=== PATIENT | male | born 1950 | race Caucasian/White ===

== ENCOUNTER → 2017-07-27 | Outpatient (CLI) | payer MEDICARE, OTHER ==
[~2017-07-27] MED LIST: CLO1 PO; FLU20 PO; FLUO-177 PO; ONDA4TAB SL; OXYC-869 PO
--- NOTE | 2017-07-27 16:28 | RADIOLOGY IMAGING REPORT ---
FACILITY: [facility] PATIENT NAME: Leonard Romo : 1950 MR: [id number] V: [id number] EXAM DATE: ORDERING PHYSICIAN: KORI FREED TECHNOLOGIST: Location: [facility] Patient: Leonard Romo : 1950 Visit/Account:[id number] Date of Sevice: 07/27/2017 Exam type: LUMBAR SPINE 2 OR 3 VIEW History: Low back pain, right lateral thigh pain Comparison: None. Findings: There is a 21 degree levoconvex scoliosis at the thoracolumbar junction. There is no evidence of acu te fractures or subluxations in the lumbar spine. There are marginal osteophytes seen from T10 throu gh L4 IMPRESSION: 1. Spondylotic changes of the thoracolumbar spine. If patient's pain continues MR is recommended. 21 degrees levoconvex scoliosis at the thoracolumbar junction Report Dictated By: Jenna Figueroa MD at 07/27/2017 4:15 PM Report E-Signed By: Jenna Figueroa MD at 07/27/2017 4:23 PM WSN:[email or web address]
== END ==
LOC: RAD 15:19
PROVIDERS: ATTEND Chiropractor
DX: M47.895 Other spondylosis, thoracolumbar region (principal); M41.85 Other forms of scoliosis, thoracolumbar region
CPT/HCPCS: 72100